=== PATIENT | male | born 1940 | race Caucasian/White ===

== ENCOUNTER 2017-12-21 07:30 | Inpatient (IN) | payer MEDICARE, BC ==
[2017-12-29] MEDS ORDERED: Acetaminophen 500 MG Tab PO ONE (06:00)
[2017-12-29] MEDS: Scopolamine 1.5 MG Transdermal Patch TOP SCH ×2 (06:00→11:51)
[2017-12-29] MEDS ORDERED: Gabapentin 300 MG Cap PO ONE (06:00)
[2017-12-29] MEDS ORDERED: Lactated Ringers 1,000 ML IV SCH (06:00)
[2017-12-29] MEDS ORDERED: ceFAZolin 2 GM in Premix Bag 1 BAG IV ONE (06:00)
[2017-12-29] MEDS ORDERED: Thrombin (Bovine) 5,000 Unit Kit ONE (06:53)
[2017-12-29] MEDS ORDERED: Povidone-Iodine 10% Soln 118.25 ML Bottle ONE (06:54)
[2017-12-29] MEDS ORDERED: Bupivacaine 0.5%/EPINEPHrine 1:200,000 50 ML MDV ONE (06:54)
[2017-12-29] MEDS ORDERED: Midazolam 1 MG/ML 2 ML SDV ONE (07:13)
[2017-12-29] MEDS ORDERED: fentaNYL 250 MCG/5 ML SDV ONE ×2 (07:13→08:08)
[2017-12-29] MEDS ORDERED: Succinylcholine/Normal Saline 200 MG/10 ML Syringe ONE (07:17)
[2017-12-29] MEDS ORDERED: Propofol 200 MG/20 ML SDV ONE (07:17)
[2017-12-29] MEDS ORDERED: Dexamethasone 4 MG/ML SDV ONE ×2 (07:17→10:16)
[2017-12-29] MEDS ORDERED: Ondansetron 4 MG/2 ML SDV ONE (07:17)
[2017-12-29] MEDS ORDERED: Rocuronium 50 MG/5 ML Vial ONE (07:17)
[2017-12-29] MEDS ORDERED: Propofol 1,000 MG/100 ML SDV ONE (07:22)
[2017-12-29] MEDS ORDERED: Ketamine 500 MG/5 ML MDV IV ONE (07:35)
[2017-12-29] MEDS: Tranexamic Acid 1,000 MG in Sodium Chloride 0.9% 50 ML IV SCH ×2 (07:48→10:09)
[2017-12-29] MEDS ORDERED: ePHEDrine 50 MG/ML SDV ONE (07:55)
[2017-12-29] MEDS ORDERED: Lactated Ringers 1,000 ML ONE (09:44)
[2017-12-29] MEDS ORDERED: Aluminum Hydroxide/Magnesium Hydroxide/Simethicone Susp 30 ML Cup PO PRN (10:05)
[2017-12-29] MEDS ORDERED: Ondansetron 4 MG/2 ML SDV IVPUSH PRN (10:05)
[2017-12-29] MEDS ORDERED: Sennosides 8.6 MG Tab PO PRN (10:05)
[2017-12-29] MEDS ORDERED: HYDROmorphone 1 MG/ML Syringe IVPUSH PRN (10:05)
[2017-12-29] MEDS ORDERED: Zolpidem 5 MG Tab PO PRN (10:05)
[2017-12-29] MEDS ORDERED: Magnesium Hydroxide 400 MG/5 ML Susp 30 ML Cup PO PRN (10:05)
[2017-12-29] MEDS ORDERED: Naloxone 0.4 MG/ML SDV IVPUSH PRN (10:05)
[2017-12-29] MEDS ORDERED: Acetaminophen 1,000 MG in Premix Bag 1 BAG IV ONE (10:15)
[2017-12-29] MEDS ORDERED: ceFAZolin 2 GM in Sodium Chloride 0.9% 50 ML IV SCH (10:15)
[2017-12-29] MEDS: VERIFY SCOPOLAMINE PATCH TOP SCH (11:51)
[2017-12-29] MEDS: oxyCODONE 5 MG Tab PO PRN ×2 (12:00→22:51)
[2017-12-29] MEDS: ceFAZolin 2 GM in Premix Bag 1 BAG IV SCH ×2 (15:38→23:33)
--- NOTE | 2017-12-29 17:39 | OR ---
DATE OF PROCEDURE: 12/29/2017 PREOPERATIVE DIAGNOSIS: Cervical stenosis, C5-C6 and C6-C7. POSTOPERATIVE DIAGNOSIS: Cervical stenosis, C5-C6 and C6-C7. PROCEDURES: 1. Anterior cervical diskectomy and fusion, C5-C6 and C6-C7. 2. Anterior instrumentation, C5-C6 and C6-C7. 3. Interbody device placement, C5-C6 and C6-C7. GRAIN COMBINER: VAMSHI Bueno. Physician magistrate assistant, Ruth Graham NP, played an essential role in assisting in this case, helping to position the patient, retract structures as needed, as well as suturing and cutting sutures as indicated. Her presence improved patient's safety and decreased operative time. ANESTHESIA: General endotracheal intubation. FLUID: Lactated Ringer's solution. ESTIMATED BLOOD LOSS: Less than 25 mL. COMPLICATIONS: None. SPECIMEN: None. DISCHARGE DISPOSITION: Stable to PACU. INSTRUMENTATION: Coalition AGX from globus with three 16 mm and one 14 mm screw. INDICATION FOR THE PROCEDURE: The patient was seen preoperatively in the clinic. He failed nonoperative treatment. He was suffering from cervicalgia as well as bilateral upper extremity radiculopathy. Preoperative imaging confirmed the above-mentioned diagnosis. Risks and benefits of the procedure were explained to the patient. Informed consent was obtained. DETAILS OF PROCEDURE: The patient was seen preoperatively by myself and the Anesthesia staff in the preop holding area where the operative site was marked. He was brought to the operative suite by Anesthesia staff where general anesthesia was administered. Neuromonitoring leads were placed, normal at baseline, and normal throughout the case. We did run motors as well, which were normal throughout the case. He was placed on to a flat Sean table. All extremities were found to be well padded. He had a shoulder roll placed. The neck was placed in the neutral extension. He had a doughnut under his head. The shoulders were taped and we confirmed visualization preoperatively. We then prepped and draped the patient in a sterile manner as well as draped in the fluoroscopy unit in a sterile manner. Time-out was called identifying the correct patient, correct procedure, correct site, and antibiotics had begun with appropriate period of time. Lateral fluoroscopy was used to visualize the C6-C7 interspace. This was done with an oblique angle. I then made an oblique incision just medial to sternocleidomastoid above that interspace approximately 3 cm. We then carried that down to the platysma. We used Weitlaner for retraction. During the case, I used bipolar and Bovie electrocautery for hemostasis. Operative loupes were used during the case. After going through the platysma, we then using mayos and pickups went through the fascia medial to the sternocleidomastoid and down to the prevertebral space. I then used a Cloward for retraction and then inserted my Bovie into the C6-C7 interspace and confirmed this on fluoroscopy. After we have confirmed the level, I then removed the anterior osteophytes and then placed my Shadow-Line retractors with 45 and 40 blade medial to the longus colli bilaterally. I then went through extensive osteophyte anteriorly and then through the disk space and then removed as much disk as possible with the 3-0 angle curette and pituitaries. I then used an intervertebral carnival worker and then continued down to the level of the posterior longitudinal ligament. I did have to go through some posterior osteophytes prior to getting to the posterior longitudinal ligament. The dura was identified and I swept my curette out the foramen and then passed a nerve hook to confirm that they were clear. I then at times had to use thrombin-soaked Gelfoam and FloSeal for hemostasis, the FloSeal was tamped dry with a Ray-Nara. I then trialed up to a 10 spacer and then inserted a 10 x 16 7-degree spacer with a 16 x 9 mm plate anteriorly. I then awl'd my holes and then inserted two 16 mm variable angle self-drilling screws. I then repeated this process at the C5-C6 interspace. This took more work as when I got my trial down. Anterior osteophytes were very obviously keeping this from getting as far back as we needed to go, so I took more time to remove the anterior osteophytes off the C5 and C6 vertebral bodies anteriorly around the interspace. I then inserted a 10 x 16 7- degree spacer with a 16 x 8 mm plate and then a 16 mm downgoing variable angle screw and a 14 mm upgoing variable angle screw. I then took my final films confirming good placement of my interbody devices. We then copiously irrigated with 3 L Betadine infused irrigation. I then controlled any small bleeders with bipolar electrocautery and then placed FloSeal at the bottom of the wound and then waited about a minute and then tamped that dry and then placed a drain going up the lateral aspect of the wound. We then placed three 2-0 interrupted Vicryl platysma sutures followed by 3-0 Monocryl, followed by Steri-Strips and Dermabond, followed by sterile dressing. The patient was allowed to awaken from general anesthesia and then transferred to the PACU in stable condition. Montez Elliott DO /[id number]
[2017-12-29] MEDS ORDERED: Famotidine 20 MG Tab PO ONE (20:00)
[2017-12-29] MEDS ORDERED: Non-Formulary Medication 1 Each (Pravastatin Sodium [Pravastatin Sodium] 80 MG) PO SCH (21:00)
[2017-12-29] MEDS ORDERED: Pravastatin 20 MG Tab PO SCH (21:00)
[2017-12-30] MEDS ORDERED: Benzocaine/Cetylpyridinium/Menthol Lozenge MUCMEM PRN (03:08)
[2017-12-30] MEDS ORDERED: Famotidine 20 MG Tab PO SCH ×3 (09:00→21:00)
--- NOTE | 2017-12-30 09:06 | PCM.DCSUM1 ---
Discharge Summary - Hospital Course Free Text/Narrative:: Patient is status postop day 1 of a cervical fusion. He is doing very well. Patient is ambulating without any difficulties. He denies any pain at this time. He states that all his pain in the arms and chest that he had before is gone. He states that he is having no other issues. - Discharge Data Discharge Date: 12/30/17 Discharge Disposition: Home, Self-Care 01 Condition: Good - Patient Summary/Data Consults: Consultations 12/29/17 10:05 OT Evaluation and Treatment [CONS] Routine Please Evaluate and Treat. OT Reason for Consult: Strengthening This query below is only for informational purposes and is not editable. PT Evaluation and Treatment [CONS] Routine Please Evaluate and Treat. PT Reason for Consult: Strengthening This query below is only for informational purposes and is not editable. Respiratory Care Assess and Treatment [CONS] Routine Comment: Physician Instructions: Post-Op Pneumonia Prevention - Patient Instructions Diet: Usual Diet as Tolerated Activity: Apply Ice, As Tolerated Driving: Do Not Drive Showering/Bathing: May Shower, No Tub Bathing/Swimming Wound/Incision Care: Keep Operative Site/Wound Site Clean and Dry, Change Dressing Daily Notify Provider of: Fever, Increased Pain, Swelling and Redness, Drainage, Nausea and/or Vomiting - Discharge Plan Prescriptions/Med Rec: Acetaminophen/oxyCODONE [Percocet 325-5 MG] 1 tab PO Q6HR PRN #90 tablet PRN Reason: Pain Home Medications: Home Meds Famotidine 20 mg PO DAILY 07/30/14 [History] Pravastatin Sodium 80 mg PO BEDTIME 07/30/14 [History] Acetaminophen/oxyCODONE [Percocet 325-5 MG] 1 tab PO Q6HR PRN #90 tablet [Rx] Referrals: Ruth Graham NP [Nurse Practitioner] - 01/17/18 8:45 am (1 month recheck) - Discharge Summary/Plan Comment DC Time >30 min.: Yes Discharge Summary/Plan Comment: BRENDA drain was removed for myself. Patient will be DC'd to home. I did give him Percocet at home. I instructed him to increase his fluids to avoid any constipation. Patient has 1 month follow-up with me. He is to notify me if he has any other issues in the meantime. I did give him instructions on no lifting bending or twisting. - General Info Date of Service: 12/30/17 Functional Status: Reports: Pain Controlled, Tolerating Diet, Ambulating - Patient Data Vitals - Most Recent: Last Vital Signs Temp 36.3 C 12/30/17 07:20 Pulse 87 12/30/17 07:20 Resp 16 12/30/17 07:20 BP 152/95 H 12/30/17 07:20 Pulse Ox 93 L 12/30/17 07:36 Weight - Most Recent: 215 lb 9.617 oz I&O - Last 24 hours: Intake & Output 12/29/17 12/30/17 12/30/17 22:59 06:59 14:59 Intake Total 642 989 240 Output Total 800 1605 Balance -158 -616 240 Lab Results - Last 24 hrs: Laboratory Results - last 24 hr 12/30/17 12/30/17 Range/Units 04:35 04:35 WBC 17.8 H (4.5-11.0) K/uL RBC 4.85 (4.30-5.90) M/uL Hgb 15.2 H (12.0-15.0) g/dL Hct 43.3 (40.0-54.0) % MCV 89 (80-98) fL MCH 31 (27-31) pg MCHC 35 (32-36) % Plt Count 246 (150-400) K/uL Neut % (Auto) 86 H (36-66) % Lymph % (Auto) 6 L (24-44) % [place] % (Auto) 8 H (2-6) % Eos % (Auto) 0 L (2-4) % Baso % (Auto) 0 (0-1) % Sodium 138 L (140-148) mmol/L Potassium 4.3 (3.6-5.2) mmol/L Chloride 103 (100-108) mmol/L Carbon Dioxide 27 (21-32) mmol/L Anion Gap 12.3 (5.0-14.0) mmol/L BUN 17 (7-18) mg/dL Creatinine 1.0 (0.8-1.3) mg/dL Est Cr Clr Drug Dosing 73.94 mL/min Estimated GFR (MDRD) > 60 (>60) Glucose 133 H (74-106) mg/dL Calcium 8.9 (8.5-10.1) mg/dL Med Orders - Current: Current Medications Al Hydroxide/Mg Hydroxide (Mag-Al Plus) 30 ml PO Q4H PRN PRN Reason: Indigestion Benzocaine/Menthol (Cepacol Sore Throat) 1 lozenge MUCMEM ASDIRECTED PRN PRN Reason: Sore Throat Last Admin: 12/30/17 03:41 Dose: 1 hyun Famotidine (Pepcid) 20 mg PO BEDTIME ZACHARY Hydromorphone HCl (Dilaudid) 1 mg IVPUSH Q2H PRN PRN Reason: Pain Stop: 12/30/17 10:05 Lactated Ringer's (Ringers, Lactated) 1,000 mls @ 0 mls/hr IV ASDIRECTED ZACHARY PRN Reason: KVO Last Admin: 12/29/17 06:58 Dose: 25 mls/hr Magnesium Hydroxide (Milk Of Magnesia) 30 ml PO BID PRN PRN Reason: Constipation Naloxone HCl (Narcan) 0.2 mg IVPUSH ONETIME PRN PRN Reason: Oversedation Verify Scopolamine (Patch) 0 each TOP DAILY [facility] Last Admin: 12/29/17 11:51 Dose: 1 each Ondansetron HCl (Zofran) 8 mg IVPUSH Q4H PRN PRN Reason: Nausea/Vomiting Last Admin: 12/29/17 16:50 Dose: 8 mg Oxycodone HCl (Oxycodone) 10 mg PO Q4H PRN PRN Reason: Pain Stop: 12/30/17 10:05 Last Admin: 12/29/17 22:51 Dose: 10 mg Oxycodone/Acetaminophen (Percocet 325-5 Mg) 2 tab PO Q4H PRN PRN Reason: Pain Pravastatin Sodium (Pravachol) 80 mg PO BEDTIME ZACHARY Last Admin: 12/29/17 21:07 Dose: 80 mg Scopolamine (Transderm-Scop) 1.5 mg TOP Q72H ZACHARY Stop: 12/31/17 10:00 Last Admin: 12/29/17 11:51 Dose: 1.5 mg Senna (Senna) 8.6 mg PO BID PRN PRN Reason: Constipation Zolpidem Tartrate (Ambien) 5 mg PO BEDTIME PRN PRN Reason: Sleep Discontinued Medications Acetaminophen (Tylenol Extra Strength) 1,000 mg PO ONETIME ONE Stop: 12/29/17 06:01 Last Admin: 12/29/17 05:58 Dose: 1,000 mg Bupivacaine HCl/Epinephrine Bitart (Marcaine 0.5%/Epinephrine 1:200,000) Confirm Administered Dose 50 ml .ROUTE .STK-MED ONE Stop: 12/29/17 06:55 Dexamethasone (Dexamethasone) Confirm Administered Dose 4 mg .ROUTE .STK-MED ONE Stop: 12/29/17 07:18 Dexamethasone (Dexamethasone) Confirm Administered Dose 4 mg .ROUTE .STK-MED ONE Stop: 12/29/17 10:17 Ephedrine Sulfate (Ephedrine Sulfate) Confirm Administered Dose 50 mg .ROUTE .STK-MED ONE Stop: 12/29/17 07:56 Famotidine (Pepcid) 20 mg PO DAILY [facility] Famotidine (Pepcid) 20 mg PO DAILY [facility] Famotidine (Pepcid) 20 mg PO ONETIME ONE Stop: 12/29/17 20:01 Last Admin: 12/29/17 21:07 Dose: 20 mg Fentanyl (Sublimaze) Confirm Administered Dose 250 mcg .ROUTE .STK-MED ONE Stop: 12/29/17 07:14 Fentanyl (Sublimaze) Confirm Administered Dose 250 mcg .ROUTE .STK-MED ONE Stop: 12/29/17 08:09 Gabapentin (Neurontin) 300 mg PO ONETIME ONE Stop: 12/29/17 06:01 Last Admin: 12/29/17 05:58 Dose: 300 mg Cefazolin Sodium/Dextrose 2 gm (/ Premix) 50 mls @ 100 mls/hr IV ONETIME ONE Stop: 12/29/17 06:29 Last Admin: 12/29/17 07:22 Dose: 100 mls/hr Tranexamic Acid 1,000 mg/ (Sodium Chloride) 60 mls @ 240 mls/hr IV Q3H [facility] Stop: 12/29/17 10:49 Last Admin: 12/29/17 10:09 Dose: 240 mls/hr Lactated Ringer's (Ringers, Lactated) Confirm Administered Dose 1,000 mls @ as directed .ROUTE .STK-MED ONE Stop: 12/29/17 09:45 Acetaminophen 1,000 mg/ Premix 100 mls @ 400 mls/hr IV NOW ONE Stop: 12/29/17 10:29 Last Admin: 12/29/17 10:32 Dose: 400 mls/hr Cefazolin Sodium 2 gm/ Sodium (Chloride) 50 mls @ 100 mls/hr IV Q8H [facility] Stop: 12/30/17 02:44 Last Admin: 12/29/17 16:07 Dose: Not Given Cefazolin Sodium/Dextrose 2 gm (/ Premix) 50 mls @ 100 mls/hr IV Q8H [facility] Stop: 12/30/17 08:29 Last Admin: 12/29/17 23:33 Dose: 100 mls/hr Ketamine HCl (Ketalar) 39 mg IV ONETIME ONE Stop: 12/29/17 07:36 Last Admin: 12/29/17 11:27 Dose: Not Given Midazolam HCl (Versed 1 Mg/Ml) Confirm Administered Dose 2 mg .ROUTE .STK-MED ONE Stop: 12/29/17 07:14 Non-Formulary Medication (Pravastatin Sodium [Pravastatin Sodium]) 80 mg PO BEDTIME [facility] Ondansetron HCl (Zofran) Confirm Administered Dose 4 mg .ROUTE .STK-MED ONE Stop: 12/29/17 07:18 Povidone Iodine (Betadine 10% Soln) Confirm Administered Dose 1 ml .ROUTE .STK- MED ONE Stop: 12/29/17 06:55 Last Admin: 12/29/17 08:14 Dose: 30 ml Propofol (Diprivan 20 Ml) Confirm Administered Dose 200 mg .ROUTE .STK-MED ONE Stop: 12/29/17 07:18 Propofol (Diprivan 100 Ml) 1,000 mg .ROUTE .STK-MED ONE Stop: 12/29/17 07:23 Rocuronium [place] (Zemuron) Confirm Administered Dose 50 mg .ROUTE .STK-MED ONE Stop: 12/29/17 07:18 Succinylcholine Chloride (Succinylcholine In Ns Pf) Confirm Administered Dose 200 mg .ROUTE .STK-MED ONE Stop: 12/29/17 07:18 Thrombin (Thrombin-Jmi) Confirm Administered Dose 15,000 unit .ROUTE .STK-MED ONE Stop: 12/29/17 06:54 Last Admin: 12/29/17 08:14 Dose: 10,000 unit - Exam General: Reports: Alert, Oriented Extremities: Normal Inspection, Normal Range of Motion, No Pedal Edema Skin: Reports: Warm, Dry, Intact Wound/Incisions: Reports: Healing Well, Dressing Dry and Intact Neurological: Reports: No New Focal Deficit Psy/Mental Status: Reports: Alert *Q Meaningful Use (DIS) - VTE *Q VTE Criteria *Q: - Stroke *Q Stroke Criteria *Q: - AMI *Q AMI Criteria *Q:
[2017-12-30] MEDS: VERIFY SCOPOLAMINE PATCH TOP SCH (09:39)
[2017-12-30] MEDS: ceFAZolin 2 GM in Premix Bag 1 BAG IV SCH (09:41)
[2017-12-30] MEDS ORDERED: Acetaminophen/oxyCODONE 325-5 MG Tab PO PRN (10:05)
[2017-12-30 11:29] VITALS: BP 122/102
== END 2017-12-30 11:53 | disposition home or self-care (01) | DRG 473 ==
LOC: JP.SDS 12-29 05:25 → JP.SDSSCHI 12-29 05:25 → EDSTATUS 12-29 07:30 → JP.MS 12-29 10:05
PROVIDERS: ADMIT Orthopaedic Surgery; ATTEND Orthopaedic Surgery
PROC: 0RT30ZZ Resection of Cervical Vertebral Disc, Open Approach (ICD-10-PCS; principal; 2017-12-29)
PROC: 0RG20A0 Fusion of 2 or more Cervical Vertebral Joints with Interbody Fusion Device, Anterior Approach, Anterior Column, Open Approach (ICD-10-PCS; 2017-12-29)
DX: M48.02 Spinal stenosis, cervical region (principal); M50.122 Cervical disc disorder at C5-C6 level with radiculopathy; E78.00 Pure hypercholesterolemia, unspecified; Z79.899 Other long term (current) drug therapy
CPT/HCPCS: 36415; 80048; 85025; 94762; 97162-GP; 97165-GO; 97530-GP; 97535-GP; A9270-GY; C1713; J0131; J0690; J1100; J2250; J2405; J2704; J3010; J3490; J7050; J7120

== ENCOUNTER 2017-12-31 10:24 | Emergency (ER) | payer MEDICARE, BC ==
[2017-12-31 10:51] VITALS: BP 149/90
--- NOTE | 2017-12-31 11:25 | EDM.PDOC ---
ED HPI GENERAL MEDICAL PROBLEM - General Chief Complaint: General Stated Complaint: JUST HAD SURGERY/FALLING ALOT Time Seen by Provider: 12/31/17 11:19 Source of Information: Reports: Patient History Limitations: Reports: No Limitations - History of Present Illness INITIAL COMMENTS - FREE TEXT/NARRATIVE: Pt had surgery on thur. He has had several falls. He has been on on oxycodone q 6h. He does move a little fast. I feel he has not been using a walker. Onset: Gradual Duration: Day(s): Location: Reports: Other (pt denies dizziness) Associated Symptoms: Reports: Other ( with none of the falls has he passed out. ) - Related Data Allergies Allergy/AdvReac Type Severity Reaction Status Date / Time No Known Drug Allergies Allergy Other Verified 12/31/17 10:56 Home Meds: Home Meds Famotidine 20 mg PO DAILY 07/30/14 [History] Pravastatin Sodium 80 mg PO BEDTIME 07/30/14 [History] Acetaminophen/oxyCODONE [Percocet 325-5 MG] 1 tab PO Q6HR PRN #90 tablet [Rx] Past Medical History HEENT History: Reports: Impaired Vision, Other (See Below) Other HEENT History: wears glasses Cardiovascular History: Reports: High Cholesterol Gastrointestinal History: Reports: Colon Polyp, GERD Musculoskeletal History: Reports: Arthritis, Back Pain, Chronic, Neck Pain, Chronic, Other (See Below) Other Musculoskeletal History: neck pain Neurological History: Reports: Concussion - Infectious Disease History Infectious Disease History: Reports: Influenza, Mumps - Past Surgical History Neurological Surgical History: Reports: Other (See Below) Other Neurological Surgeries/Procedures: pintched nerve in neck status post laminectomy 12/29 Musculoskeletal Surgical History: Reports: Other (See Below) Other Musculoskeletal Surgeries/Procedures:: neck surgery to repair a pinched nerve approximately 5 years ago Social & Family History - Family History Family Medical History: Noncontributory - Tobacco Use Smoking Status *Q: Never Smoker Second Hand Smoke Exposure: No - Caffeine Use Caffeine Use: Reports: Coffee - Alcohol Use Days Per Week of Alcohol Use: 0 Number of Drinks Per Day: 1 Total Drinks Per Week: 0 - Recreational Drug Use Recreational Drug Use: No ED ROS GENERAL - Review of Systems Review Of Systems: See Below Constitutional: Reports: No Symptoms HEENT: Reports: No Symptoms Respiratory: Reports: No Symptoms Cardiovascular: Reports: No Symptoms Endocrine: Reports: No Symptoms GI/Abdominal: Reports: No Symptoms : Reports: No Symptoms Musculoskeletal: Reports: Other (pt has been on oxycodone and he has been falling. ) Skin: Reports: No Symptoms Neurological: Reports: No Symptoms, Other (pt is on oxycodone. ) ED EXAM, GENERAL - Physical Exam Exam: See Below Free Text/Narrative:: pt arrived because he has fallen 3-4 times. He is on oxycodone. Exam Limited By: Other (alert oriented and is moving well.) General Appearance: Other (pupils are equal and reactive. ) Ears: Normal TMs Nose: Normal Inspection Throat/Mouth: Normal Inspection Head: Atraumatic Neck: Normal Inspection Respiratory/Chest: No Respiratory Distress Cardiovascular: Regular Rate, Rhythm GI/Abdominal: Soft, Non-Tender, Other (normal bms. ) Rectal (Males) Exam: Deferred Back Exam: Other ( wound looks good. ) Extremities: Normal Inspection, Other (pt has normal strength. He ambulated well but he does move rather quickly) Neurological: Alert, Oriented, Normal Cognition, Other (normal speech) Course - Vital Signs Last Recorded V/S: Last Vital Signs Temp 36.6 C 12/31/17 11:03 Pulse 101 H 12/31/17 11:03 Resp 16 12/31/17 11:03 BP 149/90 H 12/31/17 11:03 Pulse Ox 97 12/31/17 11:03 Departure - Departure Time of Disposition: 11:28 Disposition: Home, Self-Care 01 Condition: Fair Clinical Impression: History of cervical spinal surgery, At risk for falls due to medication - Discharge Information Referrals: Martell Hnasen RED LEAD BURNER [Primary Care Provider] - Care Plan Goals: try splitting the oxycodone in half and use a half at a time. try to move slower. rtc if further problems.
== END 2017-12-31 11:36 | disposition home or self-care (01) ==
LOC: JP.ED 10:24
DX: Z47.89 Encounter for other orthopedic aftercare (principal); Z98.890 Other specified postprocedural states; Z91.81 History of falling; E78.00 Pure hypercholesterolemia, unspecified; Z79.899 Other long term (current) drug therapy
CPT/HCPCS: 99282; 99283

== ENCOUNTER 2020-06-03 07:38 | Day surgery (SDC) | payer MEDICARE ==
[2020-06-03] MEDS ORDERED: Sodium Chloride 0.9% 1,000 ML IV SCH (08:45)
[2020-06-03] MEDS ORDERED: Midazolam 1 MG/ML 2 ML SDV ONE (08:52)
[2020-06-03] MEDS ORDERED: fentaNYL 100 MCG/2 ML SDV ONE (08:52)
[2020-06-03] MEDS ORDERED: Propofol 200 MG/20 ML SDV ONE (08:53)
[2020-06-03 10:12] VITALS: BP 133/89; PULSE 74
--- NOTE | 2020-06-03 12:58 | OR ---
DATE OF PROCEDURE: 06/03/2020 SURGEON: Jonny Young MD PROCEDURE: Colonoscopy. FINDINGS: Diverticulosis, mild, limited to sigmoid colon. COMPLICATIONS: None. ACADEMIC COORDINATOR: None. ANESTHESIA: MAC. RISKS: Risks, benefits, alternatives, and limitations including, but not limited to infection, bleeding, and perforation were explained to the patient, who wished to proceed. PROCEDURE IN DETAIL: The patient was placed in a left lateral decubitus position. Digital rectal exam was performed without abnormality. Scope was introduced and advanced atraumatically to the ileocecal valve. Scope was brought back through the ascending, transverse, descending colon, and retroflexed. No evidence of old or new blood. No masses. No polyps. The diverticulosis was described as mild, limited to sigmoid colon, without other abnormalities. The patient tolerated the procedure well. Jonny Young MD /[id number]
== END 2020-06-03 10:37 | disposition home or self-care (01) ==
LOC: JP.SDS 07:38
PROVIDERS: ATTEND Surgery
DX: Z12.11 Encounter for screening for malignant neoplasm of colon (principal); K57.30 Diverticulosis of large intestine without perforation or abscess without bleeding; E78.5 Hyperlipidemia, unspecified; K21.9 Gastro-esophageal reflux disease without esophagitis; K52.9 Noninfective gastroenteritis and colitis, unspecified
CPT/HCPCS: G0121; J2250; J2704; J3010; J7030

== ENCOUNTER 2021-11-25 08:51 | Emergency (ER) | payer MEDICARE ==
[2021-11-25 09:10] VITALS: BP 161/105; PULSE 68
== END 2021-11-25 09:51 | disposition home or self-care (01) ==
LOC: JP.ED 08:51
DX: M54.6 Pain in thoracic spine (principal); E78.00 Pure hypercholesterolemia, unspecified; I10 Essential (primary) hypertension
CPT/HCPCS: 99283

== ENCOUNTER 2022-02-06 07:34 | Emergency (ER) | payer MEDICARE ==
[2022-02-06 07:46] VITALS: BP 186/93; PULSE 65
[2022-02-06] MEDS ORDERED: Ketorolac 30 MG/ML SDV IM ONE (08:13)
[2022-02-06] MEDS ORDERED: HYDROmorphone 1 MG/ML Syringe IM ONE (08:50)
== END 2022-02-06 09:26 | disposition home or self-care (01) ==
LOC: JP.ED 07:34
DX: M54.31 Sciatica, right side (principal); E78.00 Pure hypercholesterolemia, unspecified; K21.9 Gastro-esophageal reflux disease without esophagitis; Z79.899 Other long term (current) drug therapy
CPT/HCPCS: 96372; 99283; J1170; J1885

== ENCOUNTER 2023-02-04 07:27 | Day surgery (SDC) | payer MEDICARE ==
[2023-02-04] MEDS ORDERED: Labetalol 20 MG/4 ML Syringe ONE (08:26)
[2023-02-04] MEDS ORDERED: Sodium Chloride 0.9% 10 ML Syringe FLUSH PRN (08:30)
[2023-02-04 08:51] VITALS: BP 162/96; PULSE 65
== END 2023-02-04 08:56 | disposition home or self-care (01) ==
LOC: JP.SDS 07:27
PROVIDERS: ATTEND Ophthalmology
DX: H26.9 Unspecified cataract (principal); K21.9 Gastro-esophageal reflux disease without esophagitis; E66.9 Obesity, unspecified; Z68.31 Body mass index [BMI] 31.0-31.9, adult
CPT/HCPCS: 66984; J3490

== ENCOUNTER 2023-02-25 07:41 | Day surgery (SDC) | payer MEDICARE ==
[2023-02-25] MEDS ORDERED: Sodium Chloride 0.9% 10 ML Syringe FLUSH PRN (08:00)
[2023-02-25 09:04] VITALS: BP 170/80; PULSE 80
== END 2023-02-25 09:11 | disposition home or self-care (01) ==
LOC: JP.SDS 07:41
PROVIDERS: ATTEND Ophthalmology
DX: H26.9 Unspecified cataract (principal); Z79.899 Other long term (current) drug therapy
CPT/HCPCS: 66984; J3490